=== PATIENT | male | born 1990 | race Caucasian/White ===

== ENCOUNTER 2021-07-12 15:12 | Emergency (ER) | payer OTHER ==
[~2021-07-12] VITALS: Ht 182.9 cm; Wt 119.0 kg
--- NOTE | 2021-07-12 15:34 | ED Integumentary General ---
General Chief Complaint: Bite-Animal/Human/Insect Stated Complaint: SPIDER BITE L ARM Source: patient Exam Limitations: no limitations History of Present Illness Date Seen by Provider: Jul 12, 2021 Time Seen by Provider: 15:14 Initial Comments 30yoM with no pertinent PMH coming in due to left arm redness. Went to bed normal and woke up with a circular area of redness behind his left arm roughly 10cm in diameter. He does not recall any type of bite while awake. It is painful to the touch to him as a moderate burning pain that is not radiating. He took ibuprofen this morning which helped some. Last tetanus shot >10 years ago. Allergies and Home Medications Allergies Coded Allergies: No Known Drug Allergies (Unverified , 07/12/21) Patient Home Medication List Home Medication List Reviewed: Yes Review of Systems Review of Systems Constitutional: No chills, No fever EENTM: No blurred vision Respiratory: no symptoms reported Cardiovascular: no symptoms reported Gastrointestinal: no symptoms reported Genitourinary: no symptoms reported Musculoskeletal: no symptoms reported Skin: no symptoms reported Psychiatric/Neurological: No Symptoms Reported Endocrine: No Symptoms Reported Hematologic/Lymphatic: No Symptoms Reported All Other Systems Reviewed Negative Unless Noted: Yes Past Yclwkhi-Jgjune-Sxywki Hx Patient Social History Tobacco Use?: No Past Medical History Surgeries: No Physical Exam Vital Signs Capillary Refill : General Appearance: WD/WN, no apparent distress HEENT: PERRL/EOMI, normal ENT inspection, pharynx normal Neck: non-tender, full range of motion, supple, normal inspection Cardiovascular: regular rate, rhythm, no edema, no murmur Respiratory: chest non-tender, lungs clear, normal breath sounds, no respiratory distress, no accessory muscle use Gastrointestinal: normal bowel sounds, non tender, soft; No distended, No guarding Back: normal inspection, no CVA tenderness, no vertebral tenderness Extremities: normal range of motion, non-tender, normal inspection, no pedal edema, no calf tenderness, normal capillary refill Neurologic/Psychiatric: no motor/sensory deficits, alert, normal mood/affect Skin: normal color, warm/dry Skin Problem Location: other (Roughly 15 cm x 9 cm round erythematous blanching macular rash with a small central ulceration/wound that is a small scab. No obvious bite wound. Normal distal pulses and sensation. Nikolsky negative) Lymphatic: no adenopathy Progress/Results/Core Measures Progress Progress Note : Progress Note 30-year-old male with above history coming in due to concerns for an insect bite to his left elbow. ABCs were intact and vitals were stable on presentation. Physical exam with the after mentioned findings which appears most likely to be cellulitis of his left elbow after some type of open wound whether it was a bite or not. We will start him on antibiotics and I will give him information on how to follow-up with [facility]. He was then discharged home in stable condition with strict return precautions. Tetanus updated today. Departure Impression Primary Impression: Insect bites Qualified Codes: S50.362A - Insect bite (nonvenomous) of left elbow, initial encounter; W57.XXXA - Bitten or stung by nonvenomous insect and other nonvenomous arthropods, initial encounter Additional Impression: Cellulitis Qualified Codes: L03.114 - Cellulitis of left upper limb Disposition: HOME, SELF-CARE Condition: Stable Departure-Patient Inst. Decision time for Depature: 15:37 Referrals: [facility]/NANCIE JOSHI,LOCAL PHYSICIAN (PCP) Primary Care Physician Patient Instructions: Cellulitis (Skin Infection), Adult ED Add. Discharge Instructions: You do appear to have an infection in your skin. We will start you on 2 antibiotics for the next week. Take ibuprofen and/or Tylenol for pain. I would prefer to call the [facility] with the number listed in this paperwork to schedule an appointment for follow-up. This would also be good so they have a primary care doctor following you. Scripts Cephalexin (Cephalexin) 500 Mg Tablet 500 MG PO QID for 7 Days, #28 TAB Prov: JAMES ARNETT MD 07/12/21 Doxycycline Hyclate (Doxycycline Hyclate) 100 Mg Tablet 100 MG PO BID for 7 Days, #14 TAB Prov: JAMES ARNETT MD 07/12/21 Work/School Note: Work Release Form Date Seen in the Emergency Department: Jul 12, 2021 Return to Work: Jul 13, 2021 Restrictions: No Restrictions JAMES ARNETT MD Jul 12, 2021 15:34
[2021-07-12] MEDS ORDERED: CEPH500T PO (15:38)
[2021-07-12] MEDS ORDERED: DOXY100T2 PO (15:38)
[2021-07-12] MEDS ORDERED: CEPHALEXIN 250 MG (KEFLEX) CAP PO STA (15:39)
[2021-07-12] MEDS ORDERED: DOXYCYCLINE 100 MG (VIBRAMYCIN) TABLET PO STA (15:39)
[2021-07-12] MEDS ORDERED: TETANUS & DIPHTHERIA TOX,ADULT 0.5 ML (TENIVAC) IM ONE (15:45)
[2021-07-12 15:58] VITALS: BP 132/76
== END 2021-07-12 15:58 | disposition home or self-care (01) ==
LOC: EDUNIT# 15:12 → ER FS 15:15
DX: S40.862A Insect bite (nonvenomous) of left upper arm, initial encounter (principal); Z23 Encounter for immunization; W57.XXXA Bitten or stung by nonvenomous insect and other nonvenomous arthropods, initial encounter
CPT/HCPCS: 90714; 99284